=== PATIENT | female | born 1965 | race African-American/Black ===

== ENCOUNTER 2016-07-30 15:37 | Emergency (ER) | payer OTHER, BC ==
[2016-07-30 15:47] VITALS: BP 153/87; PULSE 87; TEMP 98.3; BMI 33.0
[2016-07-30] MEDS ORDERED: KETOROLAC TROMETHAMINE 60 MG/2 ML VIAL IM ONE (16:15)
[2016-07-30] MEDS ORDERED: KETOROLAC TROMETHAMINE 60 MG/2 ML VIAL ONE (16:26)
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
== END 2016-07-30 17:00 | disposition home or self-care (01) ==
LOC: JERFT 15:37
PROC: 3E0233Z Introduction of Anti-inflammatory into Muscle, Percutaneous Approach (ICD-10-PCS; principal; 2016-07-30)
DX: M54.9 Dorsalgia, unspecified (principal); E11.9 Type 2 diabetes mellitus without complications; N32.81 Overactive bladder; V47.5XXA Car driver injured in collision with fixed or stationary object in traffic accident, initial encounter; Y93.89 Activity, other specified; Y92.410 Unspecified street and highway as the place of occurrence of the external cause
CPT/HCPCS: 99281-25